=== PATIENT | female | born 1995 | race Two or more races ===

== ENCOUNTER 2020-04-26 06:56 | Observation (INO) | payer MEDICAID ==
[~2020-04-26 06:56] MED LIST: PAIN MEDICATION
[2020-04-26] MEDS ORDERED: PREN-96 PO (07:08)
[2020-04-26 08:08] LABS: Basophils # (auto) 0.1 10 ^3/uL (0-0.2); Basophils % (auto) 1.3 % (0.0-2.0); Eosinophils # (auto) 0.2 10 ^3/uL (0-0.8); Eosinophils % (auto) 2.1 % (0.0-7.0); Hematocrit 43.8 % (36.0-46.0); Hemoglobin 14.9 g/dL (12.2-16.2); Lymphocytes # (auto) 1.9 10 ^3/uL (0.4-5.4); Lymphocytes % (auto) 20.2 % (10.0-50.0); Mean Corpuscular Hemoglobin 32.3 pg (28.0-32.0); Mean Corpuscular Hgb Conc. 33.9 g/dL (32.0-36.0); Monocytes # (auto) 0.4 10 ^3/uL (0-1.3); Monocytes % (auto) 4.3 % (0.0-12.0); Neutrophils # (auto) 6.8 10 ^3/uL (1.6-8.6); Neutrophils % (auto) 72.1 % (37.0-80.0); Nucleated Red Blood Cells % 0.1 %; Platelet Count (auto) 103 10^3/uL (140-450); Red Blood Cells 4.61 10^6/uL (4.0-5.20); Red Cell Distribution Width 13.3 % (11.8-14.3); White Blood Cell 9.4 10^3/uL (4.4-10.8)
[2020-04-26 08:27] LABS: INR 0.97 (0.9-1.15); Partial Thromboplastin Time 29.4 sec (23.64-32.05)
[2020-04-26 08:30] LABS: Albumin 2.8 g/dL (3.4-5.0); Calcium 8.5 mg/dL (8.5-10.1); Potassium 3.7 mmol/L (3.5-5.1); Uric Acid 4.5 mg/dL (2.6-6.0)
[2020-04-26 08:32] LABS: Amphetamine Screen, Urine NEGATIVE (NEGATIVE); Barbiturate Scree,Urine NEGATIVE (NEGATIVE); Benzodiazephine Screen, Urine NEGATIVE (NEGATIVE); Cannabinoid Screen, Urine NEGATIVE (NEGATIVE); Cocaine Screen, Urine NEGATIVE (NEGATIVE); Opiate Scree,Urine NEGATIVE (NEGATIVE); Phencyclidine Screen, Urine NEGATIVE (NEGATIVE)
[2020-04-26 08:33] LABS: BUN/Creatinine Ratio 10.8; Bilirubin, Total 0.4 mg/dL (0.2-1.0); Total Protein 6.9 g/dL (6.4-8.2)
[2020-04-26 09:29] LABS: Urine Bacteria NONE SEEN /hpf (None Seen); Urine Blood Negative /uL (Negative); Urine Hyaline Cast FEW /lpf (0 - 2); Urine Mucus FEW (None Seen); Urine Specific Gravity 1.019 (1.001-1.035); Urine WBC 2 /hpf (0 - 5)
[2020-04-27 03:06] LABS: Rubella Antibodies, IgG 2.37 index (Immune >0.99)
[2020-04-27 05:06] LABS: RPR Non Reactive (Non Reactive)
== END 2020-04-26 09:05 | disposition home or self-care (01) | DRG 566 ==
LOC: LDRP 06:56
PROVIDERS: ADMIT Obstetrics & Gynecology; ATTEND Obstetrics & Gynecology
DX: O62.9 Abnormality of forces of labor, unspecified (principal); Z3A.40 40 weeks gestation of pregnancy; Z87.891 Personal history of nicotine dependence
CPT/HCPCS: 36415; 59025; 76805; 76818; 80053; 80307; 81001; 81002; 84112; 84550; 85025; 85610; 85730; 86592; 86703; 86762; 86850; 86900; 86901; G0378

== ENCOUNTER 2020-04-26 20:04 | Inpatient (IN) | payer MEDICAID ==
[~2020-04-26] VITALS: Ht 157.5 cm; Wt 72.6 kg
[~2020-04-26 20:04] MED LIST changes: +PREN-96 PO
[2020-04-26] MEDS ORDERED: LACTATED RINGER'S 1,000 ML IV SCH (21:01)
[2020-04-26] MEDS ORDERED: LACT. RINGERS/OXYTOCIN 20UNITS 1,000 ML IV SCH (21:01)
[2020-04-26] MEDS ORDERED: WITCH HAZEL-GLYCERIN PAD TOP PRN (21:15)
[2020-04-26] MEDS ORDERED: CARBOPROST TROMETHAMINE 250 MCG/1ML VIAL IM PRN (21:15)
[2020-04-26] MEDS ORDERED: PHISODERM TOP SOLN 240ML BTL TOP PRN (21:15)
[2020-04-26] MEDS ORDERED: METHYLERGONOVINE MALEATE 0.2 MG/ML AMP IM PRN (21:15)
[2020-04-26] MEDS ORDERED: LIDOCAINE 2%HCL (LOCAL ANESTH.) INJ 20ML MDV ID ONE (21:15)
[2020-04-26] MEDS ORDERED: DERMOPLAST 60ML BOTTLE TOP PRN (21:15)
[2020-04-26] MEDS ORDERED: PENICILLIN G POT 5MIL/D5 50ML 50 ML IV ONE ×2 (21:25→21:30)
[2020-04-26] MEDS ORDERED: BUTORPHANOL TARTRATE 2 MG/1 ML VIAL IM ONE (22:45)
[2020-04-26] MEDS ORDERED: BUTORPHANOL TARTRATE 2 MG/1 ML VIAL IV PRN (23:00)
[2020-04-27] VITALS (17 sets, daily range): BP systolic 106–125; BP diastolic 63–81
[2020-04-27] MEDS ORDERED: PENICILLIN G POTASSIUM 2,500,000 UNITS in D5W 5% 50 ML IV SCH (01:30)
[2020-04-27] MEDS ORDERED: LACT. RINGERS/OXYTOCIN 20UNITS 1,000 ML IV SCH (03:16)
[2020-04-27] MEDS ORDERED: TERBUTALINE SULFATE 1 MG/ML 1ML VIAL SC ONE (03:30)
[2020-04-27] MEDS ORDERED: ceFAZolin 1GM/50ML 50 ML IV SCH (06:45)
[2020-04-27] MEDS ORDERED: MORPHINE SULF(PF) 0.5MG/ML 10ML VIAL ONE (06:47)
[2020-04-27] MEDS ORDERED: fentaNYL CITRATE 100 MCG/2 ML VL ONE (06:47)
[2020-04-27] MEDS ORDERED: CARBOPROST TROMETHAMINE 250 MCG/1ML VIAL IM ONE ×2 (07:11→07:12)
[2020-04-27] MEDS ORDERED: diphenhdrAMINE HCL 50 MG/1 ML VL IV PRN (08:00)
[2020-04-27] MEDS ORDERED: ONDANSETRON HCL 4 MG/2 ML VIAL IV PRN (08:00)
[2020-04-27] MEDS ORDERED: HYDROmorphone HCL 2 MG/ML VL IV PRN (08:00)
[2020-04-27] MEDS ORDERED: NALOXONE HCL 0.4 MG/ML VIAL IV PRN (08:00)
[2020-04-27] MEDS: LACT. RINGERS/OXYTOCIN 20UNITS 1,000 ML IV SCH ×2 (09:25→15:02)
[2020-04-27] MEDS ORDERED: ACETAMINOPHEN IV 1000 MG/100ML (10MG/ML) IV ONE ×2 (10:00→22:45)
[2020-04-27] MEDS: MORPHINE SULFATE 4 MG/ML SYR/VIAL IV PRN ×2 (13:39→18:55)
[2020-04-27] MEDS: ONDANSETRON HCL 4 MG/2 ML VIAL IV PRN ×2 (13:40→18:55)
[2020-04-27] MEDS: ceFAZolin 1GM/50ML 50 ML IV SCH ×2 (14:35→23:22)
[2020-04-27] MEDS ORDERED: LACTATED RINGER'S 1,000 ML IV SCH (16:00)
[2020-04-27 20:10] LABS: Basophils # (auto) 0 10 ^3/uL (0-0.2); Basophils % (auto) 0.3 % (0.0-2.0); Eosinophils # (auto) 0.1 10 ^3/uL (0-0.8); Eosinophils % (auto) 0.6 % (0.0-7.0); Hemoglobin 10.9 g/dL (12.2-16.2); Lymphocytes # (auto) 1.8 10 ^3/uL (0.4-5.4); Lymphocytes % (auto) 18.9 % (10.0-50.0); Mean Corpuscular Hemoglobin 32.8 pg (28.0-32.0); Mean Corpuscular Volume 96.5 fL (80.0-100.0); Monocytes # (auto) 0.4 10 ^3/uL (0-1.3); Monocytes % (auto) 4.2 % (0.0-12.0); Neutrophils # (auto) 7.4 10 ^3/uL (1.6-8.6); Nucleated Red Blood Cells % 0.1 %; Platelet Count (auto) 82 10^3/uL (140-450); Red Blood Cells 3.32 10^6/uL (4.0-5.20); Red Cell Distribution Width 13.5 % (11.8-14.3); White Blood Cell 9.7 10^3/uL (4.4-10.8)
[2020-04-28 03:15] VITALS: BP 101/62
[2020-04-28 06:45] LABS: Basophils # (auto) 0 10 ^3/uL (0-0.2); Basophils % (auto) 0.3 % (0.0-2.0); Eosinophils # (auto) 0.1 10 ^3/uL (0-0.8); Eosinophils % (auto) 1.5 % (0.0-7.0); Hematocrit 31.5 % (36.0-46.0); Hemoglobin 10.9 g/dL (12.2-16.2); Lymphocytes # (auto) 1.7 10 ^3/uL (0.4-5.4); Lymphocytes % (auto) 22.4 % (10.0-50.0); Mean Corpuscular Hemoglobin 33.4 pg (28.0-32.0); Mean Corpuscular Hgb Conc. 34.5 g/dL (32.0-36.0); Mean Corpuscular Volume 96.7 fL (80.0-100.0); Monocytes # (auto) 0.3 10 ^3/uL (0-1.3); Monocytes % (auto) 4.5 % (0.0-12.0); Neutrophils # (auto) 5.3 10 ^3/uL (1.6-8.6); Neutrophils % (auto) 71.3 % (37.0-80.0); Platelet Count (auto) 81 10^3/uL (140-450); Red Blood Cells 3.26 10^6/uL (4.0-5.20); Red Cell Distribution Width 13.6 % (11.8-14.3); White Blood Cell 7.4 10^3/uL (4.4-10.8)
[2020-04-28 06:48] VITALS: BP 100/68
[2020-04-28] MEDS: MORPHINE SULFATE 4 MG/ML SYR/VIAL IV PRN (06:51)
[2020-04-28] MEDS: ONDANSETRON HCL 4 MG/2 ML VIAL IV PRN (06:52)
[2020-04-28] MEDS: ceFAZolin 1GM/50ML 50 ML IV SCH (06:53)
[2020-04-28] MEDS ORDERED: LACTATED RINGER'S 1,000 ML IV SCH ×2 (08:19→09:16)
[2020-04-28] MEDS ORDERED: BISACODYL 10 MG RECT SUPP PR PRN (09:30)
[2020-04-28] MEDS ORDERED: HYDROcodone-ACET 5/325MG TAB PO PRN (09:30)
[2020-04-28] MEDS: DOCUSATE SOD 100 MG CAP PO SCH ×2 (09:54→21:05)
[2020-04-28] MEDS: HYDROcodone-ACET 5/325MG TAB PO PRN ×2 (09:55→23:26)
[2020-04-28 11:35] VITALS: BP 100/64
[2020-04-28] MEDS: IBUPROFEN 800 MG TAB PO PRN ×2 (11:43→21:05)
[2020-04-28] MEDS: SIMETHICONE 80 MG CHEWABLE TABLET PO SCH ×3 (11:44→21:05)
[2020-04-28 14:58] VITALS: BP 96/64
[2020-04-28 19:00] VITALS: BP 115/73
[2020-04-28 23:00] VITALS: BP 109/71
[2020-04-29 03:00] VITALS: BP 116/92
[2020-04-29] MEDS: SIMETHICONE 80 MG CHEWABLE TABLET PO SCH ×4 (05:59→21:41)
[2020-04-29] MEDS: HYDROcodone-ACET 5/325MG TAB PO PRN ×4 (06:00→22:58)
[2020-04-29 07:10] VITALS: BP 103/71
[2020-04-29] MEDS: DOCUSATE SOD 100 MG CAP PO SCH ×2 (09:55→21:41)
[2020-04-29 11:10] VITALS: BP 110/71
[2020-04-29 15:00] VITALS: BP 112/71
[2020-04-29] MEDS: IBUPROFEN 800 MG TAB PO PRN (16:05)
[2020-04-29 19:00] VITALS: BP 121/72
[2020-04-29 23:00] VITALS: BP 120/73
[2020-04-30] MEDS: IBUPROFEN 800 MG TAB PO PRN ×2 (01:41→10:19)
[2020-04-30 02:40] VITALS: BP 115/64
[2020-04-30] MEDS: HYDROcodone-ACET 5/325MG TAB PO PRN (05:43)
[2020-04-30] MEDS: SIMETHICONE 80 MG CHEWABLE TABLET PO SCH (05:43)
[2020-04-30 07:04] VITALS: BP 118/82
[2020-04-30] MEDS ORDERED: TUBERCULIN PPD 5 UNIT/0.1 ML ID ONE (09:15)
[2020-04-30] MEDS: DOCUSATE SOD 100 MG CAP PO SCH (10:20)
== END 2020-04-30 11:15 | disposition home or self-care (01) | DRG 540 ==
LOC: OBSVTOIN 20:04 → LDRP 20:04 → UNDOADMOB 20:04 → INTOOBSV 20:04 → LDRP 21:05
PROVIDERS: ADMIT Obstetrics & Gynecology; ATTEND Obstetrics & Gynecology
PROC: 10D00Z1 Extraction of Products of Conception, Low, Open Approach (ICD-10-PCS; principal; 2020-04-27 06:47)
DX: O32.3XX0 Maternal care for face, brow and chin presentation, not applicable or unspecified (principal); O69.81X0 Labor and delivery complicated by cord around neck, without compression, not applicable or unspecified; Z37.0 Single live birth; Z3A.40 40 weeks gestation of pregnancy
CPT/HCPCS: 36415; 51702; 59025; 76815; 81002; 85025; 86850; 86900; 86901; 87340; 94760; 96361; 96366; 96372; 96374; 96375; G0378; J0131; J0690; J2405; J2540; J2590; J7060

== ENCOUNTER 2023-07-19 03:52 | Emergency (ER) | payer MEDICAID ==
[~2023-07-19] VITALS: Ht 157.5 cm; Wt 55.7 kg
[~2023-07-19 03:52] MED LIST changes: -PAIN MEDICATION
[2023-07-19 04:26] VITALS: BP 103/77; PULSE 89; RESP 15; O2SAT 96
== END 2023-07-19 06:37 | disposition left against medical advice (07) ==
LOC: ER 03:52
DX: S81.011A Laceration without foreign body, right knee, initial encounter (principal); Z53.21 Procedure and treatment not carried out due to patient leaving prior to being seen by health care provider; X58.XXXA Exposure to other specified factors, initial encounter; Y93.89 Activity, other specified; Y92.89 Other specified places as the place of occurrence of the external cause; Y99.8 Other external cause status